=== PATIENT | male | born 1975 | race Caucasian/White ===

== ENCOUNTER → 2020-09-21 | Outpatient (CLI) | payer OTHER ==
--- NOTE | 2020-09-22 14:26 | XR ---
EXAMINATION TYPE: XR orbit detect foreign body DATE OF EXAM: 09/21/2020 COMPARISON: None HISTORY: MRI clearance. Possible metal in eye TECHNIQUE: Three-view orbits FINDINGS: No radiopaque foreign bodies are identified. Paranasal sinuses and sella is visualized are normal. IMPRESSION: 1. No radiopaque foreign bodies to contraindicate MRI within the [id number].
== END | disposition home or self-care (01) ==
LOC: RAD 15:57
PROVIDERS: ATTEND Orthopaedic Surgery Sports Medicine
DX: Z18.10 Retained metal fragments, unspecified (principal)
CPT/HCPCS: 70030